=== PATIENT | female | born 1985 | race Two or more races ===

== ENCOUNTER 2024-07-16 01:08 | Emergency (ER) | payer OTHER ==
[~2024-07-16] VITALS: Ht 170.2 cm; Wt 95.3 kg
[~2024-07-16 01:08] MED LIST: AMOX1TAB12 PO; CLARITIN-D 121 EACH PO; TUSSI PRES-B L120 M1 PO
[2024-07-16] MEDS ORDERED: FOLIC ACID20 MG (01:24)
[2024-07-16] MEDS ORDERED: FERROUS FUMARA324 MG (01:24)
[2024-07-16] MEDS ORDERED: KETOROLAC TROMETHAMINE 30 MG VIAL IV ONE (01:45)
[2024-07-16] MEDS ORDERED: 0.9 % SODIUM CHLORIDE 1,000 ML IV SCH (01:45)
[2024-07-16] MEDS ORDERED: FAMOTIDINE/PF 20 MG in 0.9 % SODIUM CHLORIDE 8 ML IV PUSH STA (01:48)
[2024-07-16] MEDS ORDERED: ONDANSETRON HCL 2 MG/ML VIAL IV ONE (02:00)
[2024-07-16 02:20] LABS: HEMATOCRIT 39.7 % (36.0-45.00); HEMOGLOBIN 13.4 g/dL (12.0-15.00); MEAN CELL VOLUME 86.4 fL (80.00-100.00); MEAN CORPUSCULAR HEMOGLOBIN 29.2 pg (27.00-32.0); MEAN CORPUSCULAR HGB CONC 33.8 g/dl (32.0-36.0); PLATELET COUNT 292 K/uL (150-450); RED BLOOD COUNT 4.59 M/uL (4.00-6.00)
[2024-07-16 02:24] LABS: RED CELL DISTRIBUTION WIDTH 24.5 % (11.5-14.5)
[2024-07-16 02:46] LABS: ALBUMIN 3.5 gm/dL (3.4-5.0); BILIRUBIN TOTAL 0.47 mg/dL (0.3-1.2); CALCIUM 9.5 mg/dL (8.5-10.1); CREATININE SERUM 0.99 mg/dL (0.55-1.02); GFR 62.12; GLOBULINA 5.6 G/DL (2.4-3.5); POTASSIUM 3.74 mEq/L (3.5-5.1); TOTAL PROTEIN 9.1 gm/dL (6.4-8.2)
[2024-07-16 02:50] LABS: URINE APPEARANCE Turbid; URINE BILIRRUBIN Moderate (NEGATIVE); URINE BLOOD Large; URINE COLOR Dark Yellow; URINE GLUCOSE Negative (NEGATIVE); URINE KETONE 15 (NEGATIVE); URINE LEUKOCYTE Small; URINE NITRATE Negative
[2024-07-16 02:54] LABS: URINE CAST 10.07 uL (0.0-1.40); URINE EPITHELIAL CELLS 36.6 uL (0.0-38.8); URINE RBC 487.3 uL (0.0-20.8); URINE WBC 226.8 uL (0.0-23.2)
[2024-07-16 02:55] LABS: URINE BACTERIA > 9821.5 uL (0.0-1933); URINE PROTEIN 100 (NEGATIVE)
[2024-07-16] MEDS ORDERED: CEFTRIAXONE SODIUM 1,000 MG VIAL IV ONE (03:15)
[2024-07-16] MEDS ORDERED: TRAMADOL HCL 50 MG TABLET PO ONE (04:45)
[2024-07-16] MEDS ORDERED: MACRODANTIN100 M1 PO (04:56)
[2024-07-18] MEDS ORDERED: NAPRELAN500 M1 (11:31)
[2024-07-18] MEDS ORDERED: MEGESTROL ACETA40 MG (11:32)
== END 2024-07-16 05:16 | disposition home or self-care (01) ==
LOC: ER 01:09
PROVIDERS: General Practice
DX: R10.31 Right lower quadrant pain (principal); R10.2 Pelvic and perineal pain
CPT/HCPCS: 36415; 74177; 76830; Q9965

== ENCOUNTER 2024-07-20 06:18 | Day surgery (SDC) | payer OTHER ==
[~2024-07-20 06:18] MED LIST changes: +FERROUS FUMARA324 MG; +FOLIC ACID20 MG; +MACRODANTIN100 M1 PO; +MEGESTROL ACETA40 MG; +NAPRELAN500 M1
[2024-07-20] MEDS ORDERED: MORPHINE SULFATE 4 MG/ML VIAL IV PRN (12:15)
[2024-07-20] MEDS ORDERED: MORPHINE SULFATE 4 MG/ML VIAL IV ONE (12:45)
== END 2024-07-20 15:10 | disposition home or self-care (01) ==
LOC: CIR.AMB 06:18
PROVIDERS: ATTEND Obstetrics & Gynecology
DX: C54.1 Malignant neoplasm of endometrium (principal); N93.8 Other specified abnormal uterine and vaginal bleeding; D25.0 Submucous leiomyoma of uterus

== ENCOUNTER 2024-07-24 20:51 | Emergency (ER) | payer OTHER ==
[~2024-07-24] VITALS: Ht 170.2 cm; Wt 92.5 kg
[2024-07-24] MEDS ORDERED: 0.9 % SODIUM CHLORIDE 1,000 ML IV SCH (21:45)
[2024-07-24] MEDS ORDERED: MEPERIDINE HCL/PF 25 MG/ML VIAL IM ONE (21:45)
[2024-07-24] MEDS ORDERED: FAMOTIDINE/PF 20 MG in 0.9 % SODIUM CHLORIDE 8 ML IV PUSH ONE (21:45)
[2024-07-24 22:01] LABS: ABG PH 7.434 (7.35-7.45); ABG PO2 100.1 mmHg (80-100); ABG pCO2 33.1 mmHg (35-45); BASE EXCESS -1.7 mmol/l; BICARBONATE 21.7 mmol/l (23-25); SaO2 97.9 %; Tco2 22.7 mmol/l
[2024-07-24 22:16] LABS: allen test SATISFACTORY; o2 21 %; puncture site RADIAL LEFT
[2024-07-24 22:21] LABS: HEMATOCRIT 32.2 % (36.0-45.00); HEMOGLOBIN 10.8 g/dL (12.0-15.00); MEAN CELL VOLUME 85.2 fL (80.00-100.00); MEAN CORPUSCULAR HEMOGLOBIN 28.7 pg (27.00-32.0); MEAN CORPUSCULAR HGB CONC 33.6 g/dl (32.0-36.0); PLATELET COUNT 305 K/uL (150-450); RED BLOOD COUNT 3.78 M/uL (4.00-6.00); RED CELL DISTRIBUTION WIDTH 22.5 % (11.5-14.5)
[2024-07-24 22:45] LABS: ALBUMIN 3.3 gm/dL (3.4-5.0); BILIRUBIN TOTAL 0.28 mg/dL (0.3-1.2); CALCIUM 9.4 mg/dL (8.5-10.1); CREATININE SERUM 1.29 mg/dL (0.55-1.02); GFR 45.77; GLOBULINA 4.8 G/DL (2.4-3.5); POTASSIUM 3.82 mEq/L (3.5-5.1); TOTAL PROTEIN 8.1 gm/dL (6.4-8.2)
[2024-07-25 00:15] LABS: URINE APPEARANCE Turbid; URINE BILIRRUBIN Small (NEGATIVE); URINE BLOOD Large; URINE COLOR Dark Yellow; URINE GLUCOSE Negative (NEGATIVE); URINE KETONE 15 (NEGATIVE); URINE LEUKOCYTE Small; URINE NITRATE Negative; URINE PROTEIN 30 (NEGATIVE)
[2024-07-25 00:19] LABS: URINE BACTERIA 190.2 uL (0.0-1933); URINE CAST 11.17 uL (0.0-1.40); URINE WBC 224.1 uL (0.0-23.2)
[2024-07-25 00:54] LABS: URINE CRYSTALS FEW /HPF; URINE RBC > 10558.9 uL (0.0-20.8)
[2024-07-25 00:55] LABS: URINE MUCUS SCANT
[2024-07-25] MEDS ORDERED: MEPERIDINE HCL/PF 50 MG/ML VIAL IM STA (04:38)
[2024-07-25] MEDS ORDERED: PROMETHAZINE HCL 50 MG/ML AMPUL IM STA (04:39)
[2024-07-25 05:21] LABS: HEMATOCRIT 29.5 % (36.0-45.00); MEAN CELL VOLUME 85.1 fL (80.00-100.00); MEAN CORPUSCULAR HEMOGLOBIN 29.1 pg (27.00-32.0); MEAN CORPUSCULAR HGB CONC 34.2 g/dl (32.0-36.0); PLATELET COUNT 278 K/uL (150-450); RED BLOOD COUNT 3.46 M/uL (4.00-6.00); RED CELL DISTRIBUTION WIDTH 22.2 % (11.5-14.5)
[2024-07-25 05:35] LABS: HEMOGLOBIN 10.1 g/dL (12.0-15.00)
== END 2024-07-25 07:03 | disposition home or self-care (01) ==
LOC: ER 20:53
PROVIDERS: General Practice
DX: R10.2 Pelvic and perineal pain (principal); N94.89 Other specified conditions associated with female genital organs and menstrual cycle; Z85.89 Personal history of malignant neoplasm of other organs and systems

== ENCOUNTER 2024-12-20 09:26 | Inpatient (IN) | payer OTHER ==
[~2024-12-20] VITALS: Ht 170.2 cm; Wt 83.5 kg
[~2024-12-20 09:26] MED LIST changes: +FENTANYL1 EAC5 TD; +IRON236 MG PO; +NABUMETONE750 MG PO; +PEPCID AC10 MG PO; +PERCOCET 10-321 EACH PO; +TRAMADOL HCL E100 MG PO
--- NOTE | 2024-12-20 09:59 | NUR ---
PACIENTE ALERTA Y ORIENTADA X3 REIFERE QUE TENER ORDEN MEDICA POR INTERNANISTRA DANIELS OPRACION ISTERECTOMIA DE UTERO Y NODULOS LINFATICOS
--- NOTE | 2024-12-20 10:41 | NUR ---
SE ORIENTA A PACIENTE SOBRE TRATAMIENTO MEDICO QUIEN INDICA ENTENDER Y ACEPTAR. SE COLECTAN MUESTRAS BAJO MEDIDAS ASEPTICAS.
[2024-12-20 10:56] LABS: HEMATOCRIT 29.3 % (36.0-45.00); HEMOGLOBIN 9.9 g/dL (12.0-15.00); MEAN CELL VOLUME 105.9 fL (80.00-100.00); MEAN CORPUSCULAR HEMOGLOBIN 35.8 pg (27.00-32.0); MEAN CORPUSCULAR HGB CONC 33.8 g/dl (32.0-36.0); PLATELET COUNT 177 K/uL (150-450); RED BLOOD COUNT 2.77 M/uL (4.00-6.00)
[2024-12-20 10:57] LABS: RED CELL DISTRIBUTION WIDTH 16.4 % (11.5-14.5)
[2024-12-20 11:26] LABS: ALBUMIN 3.4 gm/dL (3.4-5.0); BILIRUBIN TOTAL 0.36 mg/dL (0.3-1.2); CALCIUM 8.8 mg/dL (8.5-10.1); CREATININE SERUM 0.86 mg/dL (0.55-1.02); GFR 73.08; GLOBULINA 4.5 G/DL (2.4-3.5); POTASSIUM 4.02 mEq/L (3.5-5.1); TOTAL PROTEIN 7.9 gm/dL (6.4-8.2)
[2024-12-20 11:29] LABS: INR 1.02; PARTIAL THROMBOPLASTIN TIME 25.5 SECONDS (22.0-34.0); PROTHROMBIN TIME 11.1 SECONDS (9.0-11.5)
--- NOTE | 2024-12-20 11:55 | NUR ---
SE ORIENTA A PACIENTE SOBRE ORDEN DE TRANSFUSION, REFIERE ENTENDER. PACIENTE FIRMA CONSENTIMIENTO PARA TRANSFUSION. SE COLECTAN TUBOS PILOTOS, SE COMPLETA REQUISICION PARA 1 UNIDAD DE PRBC Y SE LLEVA LA MISMA A BANCO DE JOSE DE LA INSTITUCION.
[2024-12-20] MEDS ORDERED: 0.9 % SODIUM CHLORIDE 1,000 ML IV SCH (14:30)
[2024-12-20] MEDS ORDERED: FAMOTIDINE/PF 20 MG in 0.9 % SODIUM CHLORIDE 8 ML IV PUSH SCH (14:35)
[2024-12-20] MEDS ORDERED: ONDANSETRON HCL 2 MG/ML VIAL IV ONE (14:45)
[2024-12-20] MEDS ORDERED: ACETAMINOPHEN 500 MG GEL..CAP PO PRN (14:45)
[2024-12-20] MEDS ORDERED: MORPHINE SULFATE 4 MG/ML CARTRIDGE IV PRN (14:45)
[2024-12-20 15:58] LABS: PH,URINE 5.5 (5.0-8.0); URINE APPEARANCE Clear; URINE BILIRRUBIN Negative (NEGATIVE); URINE BLOOD Negative; URINE COLOR Yellow; URINE GLUCOSE Negative (NEGATIVE); URINE KETONE Negative (NEGATIVE); URINE LEUKOCYTE Moderate; URINE NITRATE Negative; URINE PROTEIN Negative (NEGATIVE)
[2024-12-20 16:06] LABS: URINE BACTERIA 834.7 uL (0.0-1933); URINE EPITHELIAL CELLS 36.2 uL (0.0-38.8); URINE WBC 54.2 uL (0.0-23.2)
[2024-12-20 16:10] LABS: URINE RBC 1.6 uL (0.0-20.8)
[2024-12-20 18:08] VITALS: BP 139/77; O2SAT 99
[2024-12-21 02:04] VITALS: BP 145/85
[2024-12-21 08:00] VITALS: BP 133/83
[2024-12-21 08:57] LABS: HEMOGLOBIN 10.7 g/dL (12.0-15.00); MEAN CELL VOLUME 106.1 fL (80.00-100.00); MEAN CORPUSCULAR HEMOGLOBIN 35.6 pg (27.00-32.0); MEAN CORPUSCULAR HGB CONC 33.5 g/dl (32.0-36.0); PLATELET COUNT 142 K/uL (150-450); RED BLOOD COUNT 3.02 M/uL (4.00-6.00); RED CELL DISTRIBUTION WIDTH 15.9 % (11.5-14.5)
[2024-12-21] MEDS ORDERED: KETOROLAC TROMETHAMINE 30 MG VIAL IV ONE (20:45)
[2024-12-21] MEDS ORDERED: RINGERS SOLUTION,LACTATED 1,000 ML IV SCH (20:45)
[2024-12-21] MEDS ORDERED: MORPHINE SULFATE 4 MG/ML CARTRIDGE IV PRN (20:45)
[2024-12-21] MEDS ORDERED: FAMOTIDINE/PF 20 MG/2 ML VIAL IV PUSH SCH (21:00)
[2024-12-21] MEDS ORDERED: GABAPENTIN 300 MG CAPSULE PO SCH (21:00)
[2024-12-21] MEDS ORDERED: SIMETHICONE 125 MG CAPSULE PO SCH (21:00)
[2024-12-21] MEDS ORDERED: DOCUSATE SODIUM 100MG CAP PO SCH (21:00)
[2024-12-21] MEDS ORDERED: CELECOXIB 200 MG CAPSULE PO SCH (21:00)
[2024-12-21 23:25] LABS: HEMATOCRIT 33.2 % (36.0-45.00); HEMOGLOBIN 11.3 g/dL (12.0-15.00); MEAN CELL VOLUME 105.2 fL (80.00-100.00); MEAN CORPUSCULAR HEMOGLOBIN 35.8 pg (27.00-32.0); PLATELET COUNT 143 K/uL (150-450); RED BLOOD COUNT 3.16 M/uL (4.00-6.00); RED CELL DISTRIBUTION WIDTH 16.3 % (11.5-14.5)
[2024-12-21 23:39] LABS: ALBUMIN 3.4 gm/dL (3.4-5.0); CALCIUM 8.6 mg/dL (8.5-10.1); CREATININE SERUM 0.72 mg/dL (0.55-1.02); GFR 89.71; PHOSPHOROUS 4.4 mg/dL (2.5-4.9); POTASSIUM 4.12 mEq/L (3.5-5.1)
[2024-12-22] MEDS ORDERED: ACETAMINOPHEN 500 MG GEL..CAP PO SCH
[2024-12-22] MEDS ORDERED: METOCLOPRAMIDE HCL 5 MG/ML VIAL IV SCH (01:00)
[2024-12-22] MEDS ORDERED: CEFAZOLIN SODIUM 1,000 MG VIAL IV SCH (01:00)
[2024-12-22 04:04] VITALS: BP 129/85
[2024-12-22 07:12] LABS: HEMATOCRIT 27.8 % (36.0-45.00); HEMOGLOBIN 9.6 g/dL (12.0-15.00); MEAN CORPUSCULAR HEMOGLOBIN 36.2 pg (27.00-32.0); MEAN CORPUSCULAR HGB CONC 34.5 g/dl (32.0-36.0); RED BLOOD COUNT 2.65 M/uL (4.00-6.00); RED CELL DISTRIBUTION WIDTH 15.8 % (11.5-14.5)
[2024-12-22 07:17] LABS: PLATELET COUNT 113 K/uL (150-450)
[2024-12-22 07:39] LABS: ALBUMIN 2.8 gm/dL (3.4-5.0); CALCIUM 7.9 mg/dL (8.5-10.1); CREATININE SERUM 0.69 mg/dL (0.55-1.02); GFR 94.23; PHOSPHOROUS 4.9 mg/dL (2.5-4.9); POTASSIUM 4.69 mEq/L (3.5-5.1)
[2024-12-22] MEDS ORDERED: ENOXAPARIN SODIUM 40 MG/0.4 ML SYRINGE SUBCUTANEO SCH (09:00)
[2024-12-22 09:10] VITALS: BP 144/82
[2024-12-22 18:44] VITALS: BP 142/82; O2SAT 100
[2024-12-23 01:14] VITALS: BP 107/66; O2SAT 97
[2024-12-23 08:14] VITALS: BP 145/85
[2024-12-23 10:07] LABS: HEMATOCRIT 31.6 % (36.0-45.00); MEAN CELL VOLUME 100.1 fL (80.00-100.00); MEAN CORPUSCULAR HEMOGLOBIN 34.9 pg (27.00-32.0); MEAN CORPUSCULAR HGB CONC 34.8 g/dl (32.0-36.0); PLATELET COUNT 138 K/uL (150-450); RED BLOOD COUNT 3.16 M/uL (4.00-6.00)
[2024-12-23 10:09] LABS: RED CELL DISTRIBUTION WIDTH 19.7 % (11.5-14.5)
== END 2024-12-23 12:17 | disposition home or self-care (01) | DRG 741 ==
LOC: ER 09:29 → SEC-K 15:30 → MEDJ 15:30
PROVIDERS: General Practice; Obstetrics & Gynecology; ADMIT Obstetrics & Gynecology Gynecologic Oncology; ATTEND Obstetrics & Gynecology Gynecologic Oncology
PROC: 0UT24ZZ Resection of Bilateral Ovaries, Percutaneous Endoscopic Approach (ICD-10-PCS; principal; 2024-12-21)
PROC: 0UT94ZZ Resection of Uterus, Percutaneous Endoscopic Approach (ICD-10-PCS; 2024-12-21)
PROC: 07BC4ZZ Excision of Pelvis Lymphatic, Percutaneous Endoscopic Approach (ICD-10-PCS; 2024-12-21)
PROC: 0UT74ZZ Resection of Bilateral Fallopian Tubes, Percutaneous Endoscopic Approach (ICD-10-PCS; 2024-12-21)
PROC: 07BD4ZZ Excision of Aortic Lymphatic, Percutaneous Endoscopic Approach (ICD-10-PCS; 2024-12-21)
PROC: 8E0W4CZ Robotic Assisted Procedure of Trunk Region, Percutaneous Endoscopic Approach (ICD-10-PCS; 2024-12-21)
PROC: 30233N1 Transfusion of Nonautologous Red Blood Cells into Peripheral Vein, Percutaneous Approach (ICD-10-PCS; 2024-12-21)
DX: C54.1 Malignant neoplasm of endometrium (principal); D64.9 Anemia, unspecified
CPT/HCPCS: 58548; 36430; S2900